=== PATIENT | female | born 1975 | race Two or more races ===

== ENCOUNTER 2022-10-25 18:35 | Emergency (ER) | payer MEDICAID, OTHER ==
[~2022-10-25] VITALS: Ht 152.4 cm; Wt 73.5 kg
[2022-10-25] MEDS ORDERED: AMOX-277 PO (22:03)
[2022-10-25 23:00] VITALS: BP 119/64
== END 2022-10-25 23:26 | disposition home or self-care (01) ==
LOC: ER 18:37
DX: S01.111A Laceration without foreign body of right eyelid and periocular area, initial encounter (principal); S01.85XA Open bite of other part of head, initial encounter; W54.0XXA Bitten by dog, initial encounter; Y93.89 Activity, other specified; Y92.89 Other specified places as the place of occurrence of the external cause; Y99.8 Other external cause status
CPT/HCPCS: 12011